=== PATIENT | female | born 1965 | race Two or more races ===

== ENCOUNTER 2022-02-18 19:31 | Emergency (ER) | payer OTHER ==
[~2022-02-18] VITALS: Ht 152.4 cm; Wt 82.0 kg
[2022-02-18 20:22] VITALS: BP 130/75
[2022-02-18] MEDS ORDERED: IBUP800T26 PO (22:23)
== END 2022-02-18 22:32 | disposition left against medical advice (07) ==
LOC: ER 19:31
DX: S51.811A Laceration without foreign body of right forearm, initial encounter (principal); W25.XXXA Contact with sharp glass, initial encounter; Y93.89 Activity, other specified; Y92.89 Other specified places as the place of occurrence of the external cause; Y99.8 Other external cause status
CPT/HCPCS: 12002

== ENCOUNTER 2022-08-21 03:58 | Emergency (ER) | payer OTHER ==
[~2022-08-21] VITALS: Ht 167.6 cm; Wt 68.0 kg
[~2022-08-21 03:58] MED LIST: IBUP800T26 PO
[2022-08-21 04:29] LABS: Basophils # (auto) 0 10 ^3/uL (0-0.2); Basophils % (auto) 0.1 % (0.0-2.0); Eosinophils # (auto) 0 10 ^3/uL (0-0.8); Hematocrit 44.9 % (36.0-46.0); Hemoglobin 14.7 g/dL (12.2-16.2); Lymphocytes # (auto) 1.1 10 ^3/uL (0.4-5.4); Lymphocytes % (auto) 6.1 % (10.0-50.0); Mean Corpuscular Hemoglobin 28.9 pg (28.0-32.0); Mean Corpuscular Hgb Conc. 32.8 g/dL (32.0-36.0); Mean Corpuscular Volume 88.1 fL (80.0-100.0); Monocytes # (auto) 0.5 10 ^3/uL (0-1.3); Monocytes % (auto) 2.8 % (0.0-12.0); Nucleated Red Blood Cells % 0.1 %; Red Cell Distribution Width 13.2 % (11.8-14.3); White Blood Cell 17.6 10^3/uL (4.4-10.8)
[2022-08-21 04:41] LABS: INR 0.93 (0.9-1.15); Partial Thromboplastin Time 26.4 sec (24.6-33.4)
[2022-08-21 04:44] LABS: Albumin 4.4 g/dL (3.4-5.0); BUN/Creatinine Ratio 17.3; Calcium 10.3 mg/dL (8.5-10.1); Magnesium 2.3 mg/dL (1.6-2.6); Potassium 3.8 mmol/L (3.5-5.1)
[2022-08-21 04:47] LABS: Bilirubin, Total 1.6 mg/dL (0.2-1.0); Total Protein 8.2 g/dL (6.4-8.2)
[2022-08-21] MEDS ORDERED: OXYCODONE W/ ACETAMINOPHEN 5/325MG TABLET PO ONE (07:00)
[2022-08-21] MEDS ORDERED: ONDANSETRON ODT 4 MG TAB PO ONE (07:00)
[2022-08-21] MEDS ORDERED: CIPROFLOXACIN HCL 500 MG TAB PO ONE (07:00)
[2022-08-21] MEDS ORDERED: metroNIDAZOLE 500 MG TAB PO ONE (07:00)
[2022-08-21 08:43] VITALS: BP 131/81
== END 2022-08-21 06:44 | disposition home or self-care (01) ==
LOC: EDBD 03:58 → ER 03:58
DX: K52.9 Noninfective gastroenteritis and colitis, unspecified (principal); K80.20 Calculus of gallbladder without cholecystitis without obstruction; Z98.890 Other specified postprocedural states
CPT/HCPCS: 36415; 74176; 80053; 83690; 83735; 84484; 85025; 85610; 85730; 93005; 99285; Q0162